=== PATIENT | female | born 1975 | race Caucasian/White ===

== ENCOUNTER 2017-03-18 10:07 | Day surgery (SDC) | payer BC ==
[2017-03-18] VITALS (15 sets, daily range): BP systolic 100–137; BP diastolic 62–83; PULSE 89–104; RESP 11–20; Ht 160 cm; Wt 77.3 kg
[~2017-03-18] VITALS: Ht 160 cm; Wt 77.3 kg
[2017-03-18] MEDS ORDERED: SYN15 PO (10:44)
[2017-03-18] MEDS ORDERED: MELA1TAB15 PO (10:45)
[2017-03-18] MEDS ORDERED: ESCI10TA PO (10:45)
[2017-03-18] MEDS ORDERED: CHOL200073 PO (10:46)
[2017-03-18] MEDS ORDERED: PROPOFOL 20 ML ONE (11:13)
[2017-03-18] MEDS ORDERED: MIDAZOLAM 1 MG/ML 2 ML INJ ONE (11:13)
[2017-03-18] MEDS ORDERED: LIDOCAINE 2% (SDV) 5 ML INJ ONE (11:13)
[2017-03-18] MEDS ORDERED: FENTAnyl 50 MCG/ML VIAL ONE (11:13)
[2017-03-18] MEDS ORDERED: ROPIVACAINE 0.5 % 30 ML VIAL ONE ×2 (11:16→11:20)
[2017-03-18] MEDS ORDERED: POLYMYXIN/BACITRACIN 1L IRRIG ONE (11:20)
--- NOTE | 2017-03-18 11:41 | HPN ---
Date/Time of Note Date/Time of Note DATE: 03/18/17 TIME: 11:41 Interval H&P Admission Note Pt. seen H&P reviewed: No system changes CECIL SNOW MD Mar 18, 2017 11:41
[2017-03-18] MEDS ORDERED: morphine 2 MG INJ IV PRN (12:00)
[2017-03-18] MEDS ORDERED: CLINDAMYCIN 900 MG/D5W (PMX) 50 ML IVPB ONE (12:40)
[2017-03-18] MEDS ORDERED: ACETAMINOPHEN 1000MG/100ML IV 100 ML ONE (12:40)
[2017-03-18] MEDS ORDERED: ONDANSETRON 4 MG INJ ONE (12:49)
[2017-03-18] MEDS ORDERED: METOCLOPRAMIDE 10 MG INJ ONE (12:49)
[2017-03-18] MEDS ORDERED: DEXAMETHASONE 4 MG/ML 1 ML INJ ONE (12:49)
[2017-03-18] MEDS ORDERED: DIPHENHYDRAMINE 50 MG INJ IV PRN (13:30)
[2017-03-18] MEDS ORDERED: TRIMETHOBENZAMIDE 100 MG/ML VIAL IM PRN (13:30)
[2017-03-18] MEDS ORDERED: hydrALAzine 20 MG INJ IV PRN (13:30)
[2017-03-18] MEDS ORDERED: EPHEDrine SULFATE 50 MG/5 ML SYG IV PRN (13:30)
[2017-03-18] MEDS ORDERED: LORAZEPAM 2 MG INJ IV PRN (13:30)
[2017-03-18] MEDS ORDERED: FENTAnyl 50 MCG/ML VIAL IV PRN (13:30)
[2017-03-18] MEDS ORDERED: HYDROmorphONE (0.2 MG/ML) 10ML SYG IV PRN ×2 (13:30)
[2017-03-18] MEDS ORDERED: MEPERIDINE 25 MG INJ IV PRN (13:30)
[2017-03-18] MEDS ORDERED: LABETALOL HCL 20MG INJ IV PRN (13:30)
[2017-03-18] MEDS ORDERED: PROCHLORPERAZINE 10 MG INJ IV PRN (13:30)
[2017-03-18] MEDS ORDERED: ONDANSETRON 4 MG INJ IV PRN (13:30)
[2017-03-18] MEDS ORDERED: KETOROLAC 30 MG INJ ONE (14:42)
[2017-03-18] MEDS ORDERED: NEOMYC/POLYMYX/BACIT 30 GM OINT ONE (14:44)
[2017-03-18] MEDS ORDERED: MEPERIDINE 100 MG INJ ONE (14:57)
--- NOTE | 2017-03-18 15:01 | OPR ---
Date/Time of Note Date/Time of Note DATE: 03/18/17 TIME: 14:52 Operative Report Free Text/Dictation Procedure Date: 03/18/2017 Pre-operative Diagnosis Right knee ACL tear Postoperative Diagnosis Right knee ACL tear Right knee patellofemoral chondromalacia Right knee lateral meniscus posterior horn tear Operation Performed 1. Right knee arthroscopy with ACL reconstruction with Tibialis Anterior Allograft 2. Right knee arthroscopy with Chondroplasty 3. Right knee partial lateral meniscectomy Surgeon: CCEIL SALCEDO MD academic assistant: Marzena Lowry Anesthesia: general, other (fascia iliacus) Anesthesiologist: Leah Elizabeth MD Tourniquet Time: 90 min at 250 mmHg Estimated Blood Loss: 0 - 10 ml's Grafts/Implants Mitek Adjustable rigid loop button Mitek Intrafix 8-10 size for a size 10 graft Complications: None Pt Condition Post Procedure: stable Disposition: PACU RISK NOTE: Patient was explained the risks and benefits of the surgery in the patients [place] language, including not limited to infection, bleeding, loss of limb, loss of life, need for future surgery, risk of anesthesia, risk of injury to the blood vessels and nerves, ligaments or tendons, and risk of deep vein thrombosis. Patient understood these risks and wished to proceed with the surgery. 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 Without the qualified mortgage loan assistant being present, it would have extended the operative procedure and made the procedure technically more difficult to perform. INDICATIONS: The patient is a 42-year-old female with a prolonged history of right knee giving way. She has had continued episodes of instability. MRI confirms ACL rupture. The patient has restored their range of motion and is now brought to the operating room for ACL reconstruction, possible partial medial and lateral meniscectomy versus medial and lateral meniscal repair, chondroplasty and debridement. The risks, benefits, and alternatives of surgery were discussed with the patient. The risks included but were not limited to infection, bleeding, damage to vessels and nerves, loss of motion, continued pain, re-tear of the meniscus, deep venous thrombosis, and complications due to anesthesia including nerve injury, myocardial infarction, stroke, , etc. The patient stated understanding of the nature of the surgical procedure and gave written and verbal consent to proceed. PROCEDURE: The patient was brought to the operating room and placed supine on the operating room table. General anesthesia was induced and a fascia iliacus block was placed. The right lower extremity was examined under anesthesia. Range of motion was 0 degrees of extension to 135 degrees of flexion. There was no varus or valgus or posterolateral instability. She had no instability to varus or valgus stress at 0 or 30 degrees. She had a 2+ Joe and drawer with a positive pivot shift The right lower extremity was then prepped and draped in the usual fashion. A tourniquet was placed proximally on the thigh over a bias stockinette. A standard anterolateral parapatellar stab wound was created. The knee joint was entered with a blunt-tipped obturator, followed by the 30-degree video arthroscope. An anteromedial portal was established under arthroscopic control. A routine arthroscopic survey was performed. The suprapatellar pouch was unremarkable. The undersurface of the patella was well-preserved. The patella appeared to track centrally within the trochlear groove. Trochlea showed grade 2/3 midline chondromalacia. The medial and lateral gutters were inspected and there was no loose body seen. There was no hypertrophied plica. The popliteal hiatus was entered and was unremarkable. The lateral compartment was entered. The lateral femoral condyle exhibited no chondromalacia and the lateral tibial plateau showed no chondromalacia. There was no chondromalacia adjacent to the notch. There was no chondromalacia along the central aspect of the weight bearing lateral tibial plateau. The lateral meniscus was probed and found to be partially torn at the posterior horn along the white white zone. Using a meniscal biter and shaver the meniscal remnant was trimmed to a firm and stable rim. It was then probed and found to be stable and firm on probing The intercondylar notch was visualized. The anterior cruciate ligament was torn from its femoral origin. There was an empty lateral wall. Posteromedially there was no loose body seen. The posterior cruciate ligament was visualized and appeared intact. The medial compartment was entered. The articular surfaces of the medial femoral condyle and medial tibial plateau were visualized. There was minimal chondromalacia noted on the medial femoral condyle, and the medial meniscus was probed and found to be stable with no tear or displacement and minimal chondromalacia noted on the medial tibial plateau. Attention was turned to reconstruction of the anterior cruciate ligament. Following exsanguination with an Esmarch bandage the tourniquet was inflated to 250 mm of mercury. Using a motorized shaver a limited notchplasty was performed, exposing the lateral wall and roof of the notch, identifying the [id number] position. The stump of the anterior cruciate ligament was debrided. A Vector guide was placed intra-articularly between the tibial spines in line with the anterior horn of the lateral meniscus. A Doris wire was then inserted into the knee through a 2 cm incision made over the proximal medial tibia for the hamstring harvest. The incision was deepened through the subcutaneous tissue with subperiosteal dissection achieved. Bleeding points were coagulated with the Bovie electrocautery. Tibial drilling was then carried out first with a 6 mm followed by a 8 mm then 10 mm cylindrical reamer with the guide set at 55 degrees. Via an accessory medial portal, the Beath pin was drilled out the femoral cortex and skin with the knee in hyperflexion. The femoral tunnel was then created, with a spade tip guidewire, Depth-gauging confirmed a tunnel length of 30 mm. Then reaming proceeded, first with a 6 mm then an 8 mm then 10mm drill to a depth of 23mm. A adjustable rigid loop Mitek button was selected. The graft was inserted intra -articularly and the Mitek button was deployed. The graft was cycled for 20 cycles with 25 pounds of force to pre-load the graft. Tibial fixation was carried out using a 8-10 Intra-Fix in 10 degrees of flexion with a posterior drawer. At the completion of surgery the patient had a firm stable Joe. There was a negative pivot shift. The patient had a 0 firm Joe and a negative pivot shift. There was no evidence for any roof or lateral wall impingement. The tourniquet was deflated at 90 minutes. The knee was irrigated with two liters of lactated Ringer's solution. Excess fluid was drained. The tibial wounds were then copiously irrigated with bacitracin solution and closed in layers with #0, #2-0 and #3-0 Vicryl. The skin was reapproximated with #4-0 Monocryl. The knee was injected with 20 cc of 0.5% plain ropivacaine. A dry sterile dressing was applied, followed by a bulky bandage and CARLA wrap insuring no contact with the skin. A postoperative TROM brace was applied locked in full extension. The patient was awakened in the Operating Room and transported to the Recovery Room in satisfactory condition. The patient appeared to tolerate the procedure well. At the completion of surgery the patient had soft compartments, palpable pulses, and brisk capillary refill. There were no complications noted. Procedure Date: Mar 18, 2017 Preoperative Diagnosis see note Postoperative Diagnosis see note Operation/Procedure Performed see note Surgeon Cecil Salcedo MD Lead Project Engineer see note Anesthesia Type: general Estimated Blood Loss: minimal Transfusion none Specimen none Grafts/Implants see note Complications none Procedure Description see note CECIL SALCEDO MD Mar 18, 2017 15:01
== END 2017-03-18 17:09 | disposition home or self-care (01) ==
LOC: SDS 10:07
PROVIDERS: ATTEND Orthopaedic Surgery
DX: S83.511A Sprain of anterior cruciate ligament of right knee, initial encounter (principal); S83.281A Other tear of lateral meniscus, current injury, right knee, initial encounter; M94.261 Chondromalacia, right knee; I10 Essential (primary) hypertension; E11.9 Type 2 diabetes mellitus without complications; X58.XXXA Exposure to other specified factors, initial encounter; Y93.89 Activity, other specified; Y92.89 Other specified places as the place of occurrence of the external cause; Y99.8 Other external cause status
CPT/HCPCS: 29881; 29888; C1762; J0131; J1100; J1885; J2175; J2250; J2405; J2765; J2795; J3010